=== PATIENT | female | born 1955 | race Caucasian/White ===

== ENCOUNTER 2022-07-10 13:12 | Outpatient (CLI) | payer MEDICARE, OTHER | END 2022-07-10 13:13 | disposition home or self-care (01) | LOC: TBSIIMAG 13:12 | PROVIDERS: ATTEND Physician Assistant | DX: S32.058A Other fracture of fifth lumbar vertebra, initial encounter for closed fracture (principal); M54.2 Cervicalgia; M43.8X6 Other specified deforming dorsopathies, lumbar region; M47.812 Spondylosis without myelopathy or radiculopathy, cervical region; Z98.1 Arthrodesis status | CPT/HCPCS: 72040; 72100 ==

== ENCOUNTER 2022-08-06 13:33 | Outpatient (CLI) | payer MEDICARE, OTHER | END 2022-08-06 13:34 | disposition home or self-care (01) | LOC: TBSIIMAG 13:33 | PROVIDERS: ATTEND Neurological Surgery | DX: M48.062 Spinal stenosis, lumbar region with neurogenic claudication (principal); M48.56XA Collapsed vertebra, not elsewhere classified, lumbar region, initial encounter for fracture | CPT/HCPCS: 72100 ==

== ENCOUNTER 2022-08-07 10:56 | Outpatient (CLI) | payer MEDICARE, OTHER | END 2022-08-07 10:57 | disposition home or self-care (01) | LOC: BICCT 10:56 | PROVIDERS: ATTEND Urology | DX: S37.10XA Unspecified injury of ureter, initial encounter (principal); S22.008A Other fracture of unspecified thoracic vertebra, initial encounter for closed fracture; N39.41 Urge incontinence; R39.9 Unspecified symptoms and signs involving the genitourinary system; M54.50 Low back pain, unspecified; G95.89 Other specified diseases of spinal cord | CPT/HCPCS: 74178; 82565 ==

== ENCOUNTER 2022-08-28 14:31 | Outpatient (CLI) | payer MEDICARE, OTHER | END 2022-08-28 14:32 | disposition home or self-care (01) | LOC: SCSMRI 14:31 | PROVIDERS: ATTEND Anesthesiology Pain Medicine | DX: S32.050G Wedge compression fracture of fifth lumbar vertebra, subsequent encounter for fracture with delayed healing (principal); M47.816 Spondylosis without myelopathy or radiculopathy, lumbar region; M43.16 Spondylolisthesis, lumbar region; M48.061 Spinal stenosis, lumbar region without neurogenic claudication; R60.9 Edema, unspecified; M48.8X6 Other specified spondylopathies, lumbar region | CPT/HCPCS: 72148 ==

== ENCOUNTER 2022-09-26 10:51 | Outpatient (CLI) | payer MEDICARE, OTHER | END 2022-09-26 10:52 | disposition home or self-care (01) | LOC: SCSCT 10:51 | PROVIDERS: ATTEND Anesthesiology Pain Medicine | DX: S32.009A Unspecified fracture of unspecified lumbar vertebra, initial encounter for closed fracture (principal); Z98.890 Other specified postprocedural states | CPT/HCPCS: 72131 ==

== ENCOUNTER 2023-05-27 15:18 | Outpatient (CLI) | payer MEDICARE, OTHER | END 2023-05-27 15:19 | disposition home or self-care (01) | LOC: SCSMRI 15:18 | PROVIDERS: ATTEND Nurse Practitioner Family | DX: M48.062 Spinal stenosis, lumbar region with neurogenic claudication (principal); M47.816 Spondylosis without myelopathy or radiculopathy, lumbar region; M47.817 Spondylosis without myelopathy or radiculopathy, lumbosacral region | CPT/HCPCS: 72148 ==

== ENCOUNTER 2023-06-19 13:06 | Outpatient (CLI) | payer MEDICARE, OTHER | END 2023-06-19 13:07 | disposition home or self-care (01) | LOC: SCSRAD 13:06 | PROVIDERS: ATTEND Nurse Practitioner Family | DX: M54.6 Pain in thoracic spine (principal) | CPT/HCPCS: 71046; 81001; 87086 ==

== ENCOUNTER 2023-08-13 11:59 | Outpatient (CLI) | payer MEDICARE, OTHER | END 2023-08-13 12:00 | disposition home or self-care (01) | LOC: SCSRAD 11:59 | PROVIDERS: ATTEND Nurse Practitioner Family | DX: K57.92 Diverticulitis of intestine, part unspecified, without perforation or abscess without bleeding (principal); R14.0 Abdominal distension (gaseous) | CPT/HCPCS: 74018 ==